=== PATIENT | female | born 1975 | race Caucasian/White ===

== ENCOUNTER 2018-05-30 06:00 | Inpatient (IN) | payer OTHER ==
[2018-05-30] VITALS (53 sets, daily range): BP systolic 96–181; BP diastolic 56–91
[~2018-05-30] VITALS: Ht 162.6 cm; Wt 71.0 kg
--- NOTE | 2018-05-30 06:30 | NUR ---
GENEVA KRISHNA presented to unit via from ED, accompanied by significant other, for INDUCTION. GENEVA KRISHNA weighed, gowned, voided, and to bed. EFHM and TOCO applied, VS taken. GENEVA KRISHNA oriented to bed controls, call light, TV, heat, and A/C controls.
[2018-05-30] MEDS ORDERED: MINERAL OIL CONCENTRATE 99.9% 15 ML UDC TOP PRN (06:45)
[2018-05-30 06:58] LABS: BILIRUBIN,URINE NEGATIVE (NEGATIVE); CLARITY,URINE CLEAR; COLOR,URINE YELLOW; GLUCOSE, URINE (UA) NEGATIVE (NEGATIVE); KETONES,URINE NEGATIVE (NEGATIVE); LEUKOCYTE ESTERASE ,URINE 3+ (NEGATIVE); NITRITE,URINE NEGATIVE (NEGATIVE); PH,URINE 7 (5-9); PROTEIN,URINE 2+ (NEGATIVE); UROBILINOGEN,URINE NORMAL (NORMAL)
[2018-05-30 07:13] LABS: BACTERIA,URINE FEW /HPF; RBC,URINE 0-2 /HPF
[2018-05-30] MEDS: D5 LR IV SOLUTION 1,000 ML IV SCH ×2 (07:35→15:17)
--- NOTE | 2018-05-30 08:01 | History & Physical-OB ---
OB - Chief Complaint & HPI Date/Time Date of Admission: Date of Admission: May 30, 2018 at 06:29 Date seen by a Provider: May 30, 2018 Time Seen by a Provider: 07:50 Chief Complaint/History OB-Reason for Admission/Chief: Induction of Labor Hx : 4 Hx Para: 3 Expected Date of Delivery: May 27, 2018 Gestational Age in Weeks: 40 Indication for induction: post dates Indication for : other () Other reason for admission: Pitocin Induction of Labor, Admission Nurse Assessment Rev: No Allergies and Home Medications Allergies Coded Allergies: Penicillins (Verified Allergy, Mild, 05/30/18) Patient Home Medication List Home Medication List Reviewed: Yes OB - History Hx of Present Ultrasounds: Normal mid trimester US Obstetrical Complications: Other (Advanced Maernal Age 2. Previous ) Medical Complications: None Obstetrical History Hx : 4 Hx Para: 3 Hx # Term Pregnancies: 3 Hx # Pregnancies: 0 Number of Living Children: 3 Hx Termination: No Hx Total # of Abortions (Spona: 0 Hx Multiple Gestation: No Hx Ectopic : No Hx Stillbirth: No Hx Complication: Yes (First was a , followed by two ) Hx Induced Hypertens: No Hx Maternal Gestational Diabet: No Hx Hemorrhage: No Delivery History Hx Dystocia: No Hx Forceps Assisted Delivery: No Hx Vacuum Extraction Assisted: No Hx Placenta Abnormality: No Hx Distress: No Hx Large For Gestational Age I: No Hx Small for Gestational Age I: No Hx Section: Yes Hx Vaginal Delivery Post C-Sec: Yes Hx Blood Disorders: No Adverse Rxn to Tranfusion: No Patient Past Medical History Healthy Healthy, advanced maternal age (43) Social History/Family History HIV/AIDS: No Recent Infectious Disease Expo: No Sexually Transmitted Disease: No Alcohol Use: Denies Use Recreational Drug Use: No Smoking Cessation: Current every day smoker 2nd Hand Smoke Exposure: Yes Immunizations Date of Influenza Vaccine: Dec 30, 2018 OB - Admission Exam Physical Exam HEENT: NCAT Heart: Rhythm Normal Lungs: Clear Abdomen: Gravid Extremities: Normal Cervical Dilatation: 1cm Effacement: Other (30%) Station: -3 Membranes: Intact Heart Rate: 130's Accelerations: Accelerations Present Decelerations: No Decelerations Short Term Variability: Present Mattress Renovator Variability: Average (6-25) Contractions on Admission: None [place] Scoring Tool (Modified) Dilation (cm): 1-2cm (1) Effacement (%): 0-30% (0) Descent/Station: -3 (0) Cervix Consistency: Medium(1) Cervix Position: Posterior (0) Add 1 point for: Each previous vaginal delivery (1) (2) Labs Laboratory Tests Test 05/30/18 06:50 Range/Units Urine Color YELLOW Urine Clarity CLEAR Urine pH 7 5-9 Urine Specific [place] 1.010 L 1.016-1.022 Urine Protein 2+ H NEGATIVE Urine Glucose (UA) NEGATIVE NEGATIVE Urine Ketones NEGATIVE NEGATIVE Urine Nitrite NEGATIVE NEGATIVE Urine Bilirubin NEGATIVE NEGATIVE Urine Urobilinogen NORMAL NORMAL MG/DL Urine Leukocyte Esterase 3+ H NEGATIVE Urine RBC (Auto) 1+ H NEGATIVE Urine RBC 0-2 /HPF Urine WBC 5-10 H /HPF Urine Squamous Epithelial Cells 10-25 H /HPF Urine Crystals NONE /LPF Urine Bacteria FEW H /HPF Urine Casts NONE /LPF Urine Mucus NEGATIVE /LPF Urine Culture Indicated YES OB - Assessment/Plan/Diagnosis Assessment Assessment: induction of labor, other (Advanced Maternal Age 2. Previous C- Section 3. 2 Previous ) Admission Dx IUP at 40 3/7 weeks Advanced Maternal Age Previous History of Two Admission Status: Inpatient Order (span 2 midnights) Reason for Inpatient Admission: Pitocin Induction of Labor TOLAC Advanced Maternal Age Plan Induction Method: per Pitocin Protocol AL FREIRE DO May 30, 2018 08:00
[2018-05-30 08:08] LABS: BASOPHILS % (AUTO) 0 % (0-10); EOSINOPHILS # (AUTO) 0.1 10^3/uL (0.0-0.3); EOSINOPHILS % (AUTO) 1 % (0-10); HEMATOCRIT 36 % (35-52); HEMOGLOBIN 12.1 G/DL (11.5-16.0); LYMPHOCYTES # (AUTO) 1.7 X 10^3 (1.0-4.0); LYMPHOCYTES % (AUTO) 15 % (12-44); MEAN CORPUSCULAR HEMOGLOBIN 30 PG (25-34); MEAN CORPUSCULAR HGB CONC 34 G/DL (32-36); MEAN CORPUSCULAR VOLUME 90 FL (80-99); MEAN PLATELET VOLUME 10.4 FL (7.4-10.4); MONOCYTES # (AUTO) 0.7 X 10^3 (0.0-1.0); MONOCYTES % (AUTO) 6 % (0-12); NEUTROPHILS # (AUTO) 8.7 X 10^3 (1.8-7.8); NEUTROPHILS % (AUTO) 78 % (42-75); PLATELET COUNT 334 10^3/uL (130-400); RED CELL DISTRIBUTION WIDTH 14.1 % (10.0-14.5); WHITE BLOOD COUNT 11.2 10^3/uL (4.3-11.0)
[2018-05-30] MEDS ORDERED: SUFENTA 0.6MCG/ML BUPIVA 0.125 100 ML ONE (08:45)
--- NOTE | 2018-05-30 09:34 | NUR ---
LOUIS CIAIO LUMITE INJECTOR here for epidural placement. Procedure explained, consent reviewed and signed by anesthesia. Questions answered to patient's satisfaction. Time out taken to verify correct patient/procedure. Patient up to side of bed, assisted into sitting position. Betadine prep done x3 and sterile drape applied. Local done, see anesthesia record. Test dose given, see anesthesia record for drug and dosage. Epidural catheter secured in place. Epidural placement complete. Assisted back into bed, monitors adjusted. Epidural dosed, see anesthesia record. Patient tolerated procedure well.
[2018-05-30] MEDS ORDERED: LIDOCAINE 1% INJ 20 ML 20 ML VIAL ONE (09:45)
[2018-05-30] MEDS ORDERED: LACTATED RINGERS 1,000 ML IV ONE (10:22)
[2018-05-30] MEDS ORDERED: CATHETER FLUSH 10 ML SYR IV PRN (10:30)
[2018-05-30] MEDS ORDERED: diphenhydrAMINE 50 MG/ML INJ (BENADRYL) IV PRN (10:30)
[2018-05-30] MEDS ORDERED: NALOXONE 0.4 MG/ML 1 ML (NARCAN) VIAL IV PRN (10:30)
[2018-05-30] MEDS ORDERED: LIDOCAINE 1% INJ 20 ML 20 ML VIAL INJ ONE (10:30)
[2018-05-30] MEDS ORDERED: EPIDURAL (SUFENTA 0.6MCG/ML BUPIVA 0.125%) 100 ML BAG EPI SCH (10:30)
[2018-05-30] MEDS ORDERED: ONDANSETRON 4 MG/2 ML (SDV) Z0FRAN IV PRN (10:30)
[2018-05-30] MEDS ORDERED: NALOXONE 0.4 MG/ML 1 ML (NARCAN) VIAL IM PRN (10:30)
[2018-05-30] MEDS ORDERED: PREN1TAB79 PO (10:37)
[2018-05-30] MEDS: OXYTOCIN/NORMAL SALINE 500 ML IV SCH ×2 (11:47→16:29)
[2018-05-30] MEDS ORDERED: CATHETER FLUSH 10 ML SYR IV SCH (14:00)
[2018-05-30] MEDS ORDERED: LIDOCAINE PF 2% 5 ML (XYLOCAINE) VIAL ONE (14:21)
[2018-05-30] MEDS ORDERED: fentaNYL INJECTION 100 MCG/2 ML AMP ONE (14:21)
--- NOTE | 2018-05-30 16:21 | OB Labor & Delivery Record ---
Vag Delivery Note Vag Delivery Note Date of Delivery: 05/30/18 Preoperative Diagnosis: Mireille Gomez is a (43 /Para 4 / 3, Gestational Age (wks)40with [] Postoperative Diagnosis: Same Surgeon: AL FREIRE Merchant Banker: [] Anesthesia: [Epidural and Local] Delivery Type: [Normal Spontaneous Vaginal Delivery with Third Degree Perineal Laceration and Standard Repair] Findings: [] Viable [Male] , apgars [8, 9], weight [7 lbs 15 oz] Lacerations:Third Degree Intact placenta with 3 vessel cord. No nuchal cord, body cord or shoulder dystocia Estimated Blood Loss: [300] ml Complications: None Condition: Stable Description of Procedure: The patient is a 43 year old female who presented [for Pitocin Induction for TOLAC]. She was admitted and informed consent was obtained. Her labor course was remarkable for [repetitive early decelerations with an occasional late component] She progressed to complete dilatation and began to push. She was then set up for delivery. The infant's head was delivered atraumatically in the [BRIA] position. The shoulders and remainder of the infant' s body were then delivered without difficulty. Upon delivery, the head was held below the level of the perineum and the mouth and nares were bulb suctioned. The cord was doubly clamped and cut and the was handed off to the pediatric staff after a short period on mom's chest. An intact placenta with 3- vessel cord delivered via Beth and there was found to be minimal bleeding.~ Vigorous fundal massage was performed and the fundus was found to be firm. IV oxytocin was given. Examination of the vagina and perineum revealed a [third degree perineal] laceration repaired in the usual fashion with 2-0 Vicryl and 3- 0 vicryl sutures. Following the repair, sponge, instrument and needle counts were correct. Mom and baby were both in stable condition in the labor suite. Vitals - Labs Vital Signs - I&O Vital Signs Date Time Temp Pulse Resp B/P (MAP) Pulse Ox O2 Delivery O2 Flow Rate FiO2 05/30/18 14:40 93 18 138/64 (88) 100 Room Air 05/30/18 14:33 91 18 181/67 (105) 100 Room Air 05/30/18 14:27 84 18 125/73 (90) 100 Room Air 05/30/18 14:25 85 18 140/73 (95) 100 Room Air 05/30/18 14:15 84 18 124/79 (94) 100 Room Air 05/30/18 14:10 90 18 131/84 (100) 99 Room Air 05/30/18 14:00 99 18 129/80 (96) 99 Room Air 05/30/18 13:50 87 18 116/65 (82) Room Air 05/30/18 13:30 71 18 121/70 (87) Room Air 05/30/18 13:15 78 18 117/65 (82) Room Air 05/30/18 13:00 77 18 112/64 (80) Room Air 05/30/18 12:45 81 18 115/64 (81) Room Air 05/30/18 12:30 82 18 121/66 (84) Room Air 05/30/18 12:15 77 18 108/62 (77) Room Air 05/30/18 12:00 84 18 112/65 (81) Room Air 05/30/18 11:45 98.1 78 20 117/67 (84) Room Air 05/30/18 11:20 90 20 120/69 (86) 98 Room Air 05/30/18 10:50 84 20 97/65 (76) 99 Room Air 05/30/18 10:20 84 20 106/65 (79) 99 Room Air 05/30/18 10:16 81 20 108/62 (77) 100 Room Air 05/30/18 10:13 86 20 104/63 (77) 98 Room Air 05/30/18 10:10 83 20 109/62 (78) 98 Room Air 05/30/18 10:07 81 20 110/61 (77) 98 Room Air 05/30/18 10:04 86 20 106/62 (77) 98 Room Air 05/30/18 10:01 86 20 105/62 (76) 99 Room Air 05/30/18 09:58 89 20 101/59 (73) 98 Room Air 05/30/18 09:55 93 20 106/62 (77) 98 Room Air 05/30/18 09:52 102 20 108/58 (75) 98 Room Air 05/30/18 09:49 93 20 113/64 (80) 98 Room Air 05/30/18 09:46 103 20 108/57 (74) 98 Room Air 05/30/18 09:43 80 20 123/56 (78) 98 Room Air 05/30/18 09:39 90 20 112/57 (75) 99 Room Air 05/30/18 09:36 92 20 117/59 (78) 99 Room Air 05/30/18 09:33 95 20 117/57 (77) 99 Room Air 05/30/18 09:30 97 20 142/79 (100) 99 Room Air 05/30/18 09:27 96 20 129/86 (100) 99 Room Air 05/30/18 09:05 88 20 108/63 (78) Room Air 05/30/18 08:35 90 20 110/58 (75) Room Air 05/30/18 08:05 90 20 110/64 (79) Room Air 05/30/18 07:35 98.8 05/30/18 06:50 99.0 104 20 119/79 (92) Room Air Labs Laboratory Tests 05/30/18 06:50: Urine Color YELLOW, Urine Clarity CLEAR, Urine pH 7, Urine Specific [place] 1.010L, Urine Protein 2+H, Urine Glucose (UA) NEGATIVE, Urine Ketones NEGATIVE, Urine Nitrite NEGATIVE, Urine Bilirubin NEGATIVE, Urine Urobilinogen NORMAL, Urine Leukocyte Esterase 3+H, Urine RBC (Auto) 1+H, Urine RBC 0-2, Urine WBC 5- 10H, Urine Squamous Epithelial Cells 10-25H, Urine Crystals NONE, Urine Bacteria FEWH, Urine Casts NONE, Urine Mucus NEGATIVE, Urine Culture Indicated YES 05/30/18 07:30: White Blood Count 11.2H, Red Blood Count 3.99L, Hemoglobin 12.1, Hematocrit 36, Mean Corpuscular Volume 90, Mean Corpuscular Hemoglobin 30, Mean Corpuscular Hemoglobin Concent 34, Red Cell Distribution Width 14.1, Platelet Count 334, Mean Platelet Volume 10.4, Neutrophils (%) (Auto) 78H, Lymphocytes (%) (Auto) 15 , Monocytes (%) (Auto) 6, Eosinophils (%) (Auto) 1, Basophils (%) (Auto) 0, Neutrophils # (Auto) 8.7H, Lymphocytes # (Auto) 1.7, Monocytes # (Auto) 0.7, Eosinophils # (Auto) 0.1, Basophils # (Auto) 0.0 AL FREIRE DO May 30, 2018 16:21
--- NOTE | 2018-05-30 16:25 | NUR ---
FFU/2 LT LOCHIA NOTED, VSS, SKIN TO SKIN, FAMILY AT BEDSIDE, FRESH ICE WATER TO PTS SIDE, EXPLAINED PLAN OF CARE, NO QUESTIONS NOTED, WILL MONITOR CLOSELY.
[2018-05-30] MEDS ORDERED: OXYTOCIN/NORMAL SALINE 500 ML IV SCH (16:54)
[2018-05-30] MEDS ORDERED: TETANUS,DIPTH,PERTUSS P/F (BOOSTRIX) 0.5 ML VIAL IM ONE (17:00)
[2018-05-30] MEDS ORDERED: BENZOCAINE/MENTHOL (DERMOPLAST) 56 ML CAN TP PRN (17:00)
[2018-05-30] MEDS ORDERED: WITCH HAZEL(TUCKS) 40 EA JAR TOP PRN (17:00)
[2018-05-30] MEDS ORDERED: IBUPROFEN 600 MG (MOTRIN) TAB PO SCH (17:00)
[2018-05-30] MEDS ORDERED: oxyCODONE/APAP 5/325MG (PERCOCET 5) TABLET PO PRN (17:00)
[2018-05-30] MEDS ORDERED: DIBUCAINE (NUPERCAINAL) 1% OINT 30 GM TOP PRN (17:00)
--- NOTE | 2018-05-30 17:30 | NUR ---
PT AMBULATED TO BR WITH RN AT SIDE, VOIDED WITHOUT DIFFICULTY, PERICARE COMPLETED, PAD AND PANTIES APPLIED, SCHEDULED MOTRIN GIVEN PO,
--- NOTE | 2018-05-30 17:47 | NUR ---
PT TRANSFERRED TO ROOM 3310 VIA WC WITH RN AT SIDE, TOLERATED WELL, FFU/2 LT LOCHIA NOTED, PTS FAMILY BEDSIDE, EXPLAINED PLAN OF CARE, NO QUESTIONS NOTED, WILL MONITOR CLOSELY.
--- NOTE | 2018-05-30 18:45 | NUR ---
FFU/2 LT LOCHIA NOTED, INFANT IN MOTHERS ARMS, NO DISTRESS NOTED, PTS FAMILY REMAINS AT BEDSIDE.
--- NOTE | 2018-05-30 20:22 | NUR ---
PT SITTING UP IN BED. ASSESSMENT COMPLETED. PT DENIES ANY NEEDS AT THIS TIME. WILL CONTINUE TO MONITOR.
[2018-05-30] MEDS: DOCUSATE SODIUM 100 MG (COLACE) CAP PO SCH (20:23)
--- NOTE | 2018-05-30 21:15 | NUR ---
PT REQUESTING TO LEAVE UNIT. IV DC'D
[2018-05-31] MEDS: IBUPROFEN 600 MG (MOTRIN) TAB PO SCH ×3 (00:13→12:29)
[2018-05-31 02:00] VITALS: BP 108/67
--- NOTE | 2018-05-31 03:51 | NUR ---
PT OFF UNIT
[2018-05-31 05:54] LABS: BASOPHILS % (AUTO) 0 % (0-10); EOSINOPHILS # (AUTO) 0.1 10^3/uL (0.0-0.3); EOSINOPHILS % (AUTO) 0 % (0-10); HEMATOCRIT 27 % (35-52); HEMOGLOBIN 8.9 G/DL (11.5-16.0); LYMPHOCYTES # (AUTO) 1.7 X 10^3 (1.0-4.0); LYMPHOCYTES % (AUTO) 14 % (12-44); MEAN CORPUSCULAR HEMOGLOBIN 30 PG (25-34); MEAN CORPUSCULAR HGB CONC 33 G/DL (32-36); MEAN CORPUSCULAR VOLUME 92 FL (80-99); MEAN PLATELET VOLUME 10.1 FL (7.4-10.4); MONOCYTES # (AUTO) 0.8 X 10^3 (0.0-1.0); MONOCYTES % (AUTO) 6 % (0-12); NEUTROPHILS # (AUTO) 9.5 X 10^3 (1.8-7.8); NEUTROPHILS % (AUTO) 79 % (42-75); PLATELET COUNT 283 10^3/uL (130-400); RED CELL DISTRIBUTION WIDTH 13.9 % (10.0-14.5)
[2018-05-31 06:16] VITALS: BP 101/66
[2018-05-31] MEDS ORDERED: PRENATAL VITAMIN 1 EA TAB PO SCH (07:00)
[2018-05-31 08:39] VITALS: BP 106/68
[2018-05-31] MEDS: DOCUSATE SODIUM 100 MG (COLACE) CAP PO SCH (08:40)
--- NOTE | 2018-05-31 08:50 | NUR ---
pt ambulates self off unit accompanied by s.o. to retrieve carseat. infant to nsy per parents request.
--- NOTE | 2018-05-31 09:05 | NUR ---
Pt returns to unit via ambulation accompanied by S.O.
--- NOTE | 2018-05-31 09:33 | Anesthesia-Regional Post-Op ---
Regional Patient Condition Mental Status: Alert, Oriented x3 Circulation: Same as Pre-Op Headache: Absent Sensation: Full Recovery Motor Block: Absent Post Op Complications Complications None Follow Up Care/Instructions Patient Instructions None needed. Anesthesia/Patient Condition Patient is doing well, no complaints, stable vital signs, no apparent adverse anesthesia problems. No complications reported per nursing. TANK GONZALEZ CRNA May 31, 2018 09:33
--- NOTE | 2018-05-31 10:00 | NUR ---
Dr. Quijano here to see pt. Order rec'd to D/C pt at 24hrs.
[2018-05-31] MEDS ORDERED: OXYC1TAB87 PO (10:11)
[2018-05-31] MEDS ORDERED: IBUP-844 PO (10:11)
[2018-05-31] MEDS ORDERED: DOCU100C37 PO (10:11)
--- NOTE | 2018-05-31 10:16 | Discharge Inst-Women's Service ---
Discharge Inst-Women's Serv Depart Medication/Instructions New, Converted or Re-Newed RX: RX Given to Pt/Family Instructions Pelvic rest for 6 weeks No heavy lifting, less than 20 lbs No strenuous activities Call with problems or questions Return to office in 6 weeks. Tub soaks 2-3 x daily Final Diagnosis IUP at 40 3/7 weeks Advance Maternal Age Previous x 2 Previous x 2 TOLAC Activity Activity: Activity as Tolerated Driving Instructions: You May Drive NO SMOKING: NO SMOKING Nothing Inside Vagina: No Douching, No [place], No Tampons Diet Discharge Diet: No Restrictions Return to The Hospital For: Return to hospital with heavy vaginal bleeding (greater than a pad/hour) Temperature greater than 100.4 Symptoms to Report to : Bleeding Excessive, Pain Increased, Fever Over 101 Degrees F, Vaginal Bleeding Increase, Vaginal Discharge Foul Skin/Wound Care Infection Signs and Symptoms: Increased Redness, Foul Odor of Wound, Increased Drainage, Temperature Above 101 F Bathing Instructions: Tub (2-3 times daily) AL FREIRE DO May 31, 2018 10:16
--- NOTE | 2018-05-31 10:23 | Discharge Summary ---
Diagnosis/Chief Complaint Date of Admission May 30, 2018 at 06:29 Date of Discharge 05/31/2018 Discharge Date: May 31, 2018 Discharge Time: 10:15 Admission Diagnosis Admission Diagnosis Intrauterine Pregnacy at 40 3/7 weeks Advanced Maternal Age Previous History of x 2 TOLAC Discharge Diagnosis Intrauterine at 40 3/7 weeks Advanced Maternal Age Previous x 2 History of x 2 TOLAC Reason Hospital Visit Pitocin Induction of Labor, Discharge Summary Hospital Course Was the Problem List Reviewed?: Yes Hospital Course Admitted for a Pitocin of Labor for TOLAC. Received an epidural for anesthesia. Progressed to complete, then delivered a healthy viable male infant. Sustained a third degree perineal laceration which was repaired in the normal sterile fashion. The remainder of her stay was unremarkable. Labs Laboratory Tests 05/30/18 06:50: Urine Specific [place] 1.010L, Urine Protein 2+H, Urine Leukocyte Esterase 3+H, Urine RBC (Auto) 1+H, Urine WBC 5-10H, Urine Squamous Epithelial Cells 10-25H, Urine Bacteria FEWH 05/30/18 07:30: White Blood Count 11.2H, Red Blood Count 3.99L, Neutrophils (%) (Auto) 78H, Neutrophils # (Auto) 8.7H 05/31/18 05:25: White Blood Count 12.0H, Red Blood Count 2.96L, Neutrophils (%) (Auto) 79H, Neutrophils # (Auto) 9.5H, Hemoglobin 8.9#L, Hematocrit 27L Procedures None. Discharge Physical Examination Allergies: Coded Allergies: Penicillins (Verified Allergy, Mild, 05/30/18) Vitals & I&Os Vital Signs Date Time Temp Pulse Resp B/P (MAP) Pulse Ox O2 Delivery O2 Flow Rate FiO2 05/31/18 08:39 98.4 88 18 106/68 (81) 98 Room Air 05/30/18 16:00 10.00 General Appearance: Alert, Oriented X3, Cooperative HEENT: Atraumatic, PERRLA, EOMI Respiratory: Clear to Auscultation, Normal Air Movement Cardiovascular: Regular Rate, No Murmurs Abdominal: Normal Bowel Sounds, Soft, No Tenderness Extremities: No Clubbing, No Cyanosis, No Edema Neuro: Normal Gait, Normal Speech Psych/Mental Status: Mental Status NL Discharge Home Medications Reviewed and agree with Discharge Medication list on patient's Discharge Instruction sheet Instructions to Patient/Family Please see electronic discharge instructions given to patient. Clinical Quality Measures DVT/VTE Risk/Contraindication: Risk Factor Score Per Nursin RFS Level Per Nursing on Admit: 2=Moderate AL FREIRE DO May 31, 2018 10:23
[2018-05-31 12:30] VITALS: BP 112/74
--- NOTE | 2018-05-31 15:50 | NUR ---
Pt ambulates self off unit accompanied by s.o. Infant to nsy.
--- NOTE | 2018-05-31 16:00 | NUR ---
Report to Evy Snyder RN. Unable to give Rhogam at this time D/T pt off unit, given to Evy Snyder RN for administration up pt return.
--- NOTE | 2018-05-31 16:25 | NUR ---
RHOGAM GIVEN PER ORDER.
--- NOTE | 2018-05-31 18:25 | NUR ---
DISCHARGE INSTRUCTIONS EXPLAINED TO PT, SIGNED, PT VERBALIZES UNDERSTANDING, NO QUESTIONS OR CONCERNS NOTED.
--- NOTE | 2018-05-31 18:30 | NUR ---
PT DISCHARGED TO HOME, AMBULATED TO PRIVATE CAR WITH SECURED IN REAR FACING CAR SEAT, SO AND RN AT SIDE, NO DISTRESS NOTED.
== END 2018-05-31 18:30 | disposition home or self-care (01) | DRG 768 ==
LOC: LDRP 06:29
PROVIDERS: ADMIT Obstetrics & Gynecology; ATTEND Obstetrics & Gynecology
PROC: 10E0XZZ Delivery of Products of Conception, External Approach (ICD-10-PCS; principal; 2018-05-30)
PROC: 0DQR0ZZ Repair Anal Sphincter, Open Approach (ICD-10-PCS; 2018-05-30)
PROC: 3E033VJ Introduction of Other Hormone into Peripheral Vein, Percutaneous Approach (ICD-10-PCS; 2018-05-30)
DX: O48.0 Post-term pregnancy (principal); O70.20 Third degree perineal laceration during delivery, unspecified; O76 Abnormality in fetal heart rate and rhythm complicating labor and delivery; O34.219 Maternal care for unspecified type scar from previous cesarean delivery; O99.333 Smoking (tobacco) complicating pregnancy, third trimester; F17.210 Nicotine dependence, cigarettes, uncomplicated; Z3A.40 40 weeks gestation of pregnancy; Z37.0 Single live birth
CPT/HCPCS: 36415; 81000; 83033; 85025; 86850; 86900; 86901; 87088

== ENCOUNTER 2019-09-19 16:34 | Emergency (ER) | payer SELFPAY ==
[~2019-09-19] VITALS: Ht 165 cm; Wt 54.1 kg
[~2019-09-19 16:34] MED LIST: DOCU100C37 PO; IBUP-844 PO; OXYC1TAB87 PO; PREN1TAB79 PO
--- OUTSIDE RECORDS SUMMARY | 2019-09-19 16:39 | XMS REPORT | Continuity of Care Document ---
Author Organization Unknown Address Unknown Phone Unavailable Allergies Active Description Code Type Severity Reaction Onset Reported/Identified Relationship to Patient Clinical Status Yes Penicillins [id number] Drug Aller gy Mild N/A 05/30/2018 Medications There is no data. 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, CIGARETTES, UNCOMPL 05/31/2018 SEALS DO AL E Ot O34.2 19 MATERNAL CARE FOR UNSP TYPE SCAR FROM LA 05/31/2018 SEALS DO AL E Ot O48.0 POST-TERM 05/31/2018 SEALS DO AL E Ot O70.2 0 THIRD DEGREE PERINEAL LACERATION DURING 05/31/2018 SEALS DO AL E Ot O76 ABNLT IN HEART RATE AND RHYTHM COM 05/31/2018 SEALS DO AL E Ot O99.3 33 SMOKING (TOBACCO) COMPLICATING 05/31/2018 SEALS DO AL E Ot Z37.0 SINGLE LIVE 05/31/2018 SEALS DO, AL E Ot Z3A.4 0 40 WEEKS GESTATION OF Procedures Code Description Performed By Per formed On [id number] RE PAIR ANAL SPHINCTER, OPEN APPROACH 05/30/2018 [id number] DE LIVERY OF PRODUCTS OF CONCEPTION, EXTE 05/30/2018 [id number] IN TRODUCTION OF OTH HORMONE INTO PERIPH 05/30/2018 Results Test Result Range Complete urinalysis with reflex to cultu re - 05/30/18 06:50 Urine color determination YELLOW NRG Urine clarity determination CLEAR NR G Urine pH measurement by test strip 7 5-9 Specific gravity of urine by test strip 1.010 1.016-1.022 Urine protein assay by test strip, semi-quantitative 2+ NEGATIVE Urine glucose detection by automated test strip NE GATIVE NEGATIVE Erythrocytes detection in urine sediment by light micr oscopy 1+ NEGATIVE Urine ketones detection by automated test strip NE GATIVE NEGATIVE Urine nitrite detection by test strip NEGATIVE NEGATIVE Urine total bilirubin detection by test strip NEGA TIVE NEGATIVE Urine urobilinogen measurement by automated test strip (mass/volume) NORMAL NORMAL Urine leukocyte esterase detection by dipstick 3+ NEGATIVE Automated urine sediment erythrocyte cou nt by microscopy (number/high power field) [HPF] NRG Automated urine sediment leukocyte count by microscopy (number/high power field) [HPF] NRG Bacteria detection in urine sediment by light microsco py FEW NRG Squamous epithelial cells detection in u rine sediment by light microscopy 10-25 NRG Crystals detection in urine sediment by light microsco py NONE NRG Casts detection in urine sediment by light microscopy NONE NRG Mucus detection in urine sediment by light microscopy NEGATIVE NRG Complete urinalysis with reflex to culture YES NRG Bacterial urine culture - 05/30/18 06:50 Bacterial urine culture SEE REPORT NRG COLONY COUNT . NRG Complete blood count (CBC) with automate d white blood cell (WBC) differential - 05/30/18 07:30 Blood leukocytes automated count (number/volume) 11.2 10*3/uL 4.3-11.0 Blood erythrocytes automated count (number/volume) 3.99 10*6/uL 4.35-5.85 Venous blood hemoglobin measurement (mass/volume) 12.1 g/dL 11.5-16.0 Blood hematocrit (volume fraction) 36 % 35-52 Automated erythrocyte mean corpuscular volume 90 [ foz_us] 80-99 Automated erythrocyte mean corpuscular h emoglobin (mass per erythrocyte) 30 pg 25-34 Automated erythrocyte mean corpuscular h emoglobin concentration measurement (mass/volume) 34 g/dL 32-36 Automated erythrocyte distribution width ratio 14. 1 % 10.0- 14.5 Automated blood platelet count (count/volume) 334 10*3/uL 130-400 Automated blood platelet mean volume measurement 10.4 [foz_us] 7.4-10.4 Automated blood neutrophils/100 leukocytes 78 % 42-75 Automated blood lymphocytes/100 leukocytes 15 % 12-44 Blood monocytes/100 leukocytes 6 % 0-12 Automated blood eosinophils/100 leukocytes 1 % 0-10 Automated blood basophils/100 leukocytes 0 % 0-10 Blood neutrophils automated count (number/volume) 8.7 10*3 1.8-7.8 Blood lymphocytes automated count (number/volume) 1.7 10*3 1.0-4.0 Blood monocytes automated count (number/volume) 0. 7 10*3 0.0-1.0 Automated eosinophil count 0.1 10*3/uL 0 .0-0.3 Automated blood basophil count (count/volume) 0.0 10*3/uL 0.0-0.1 Blood type T Indirect antibody screen pa nichole - 05/30/18 07:30 ABO+Rh group ON NRG Transfusion band number [id number] NRG Blood group antibody screen NEGATIVE NR G Complete blood count (CBC) with automate d white blood cell (WBC) differential - 05/31/18 05:25 Blood leukocytes automated count (number/volume) 12.0 10*3/uL 4.3-11.0 Blood erythrocytes automated count (number/volume) 2.96 10*6/uL 4.35-5.85 Venous blood hemoglobin measurement (mass/volume) 8.9 g/dL 11.5-16.0 Blood hematocrit (volume fraction) 27 % 35-52 Automated erythrocyte mean corpuscular volume 92 [ foz_us] 80-99 Automated erythrocyte mean corpuscular h emoglobin (mass per erythrocyte) 30 pg 25-34 Automated erythrocyte mean corpuscular h emoglobin concentration measurement (mass/volume) 33 g/dL 32-36 Automated erythrocyte distribution width ratio 13. 9 % 10.0- 14.5 Automated blood platelet count (count/volume) 283 10*3/uL 130-400 Automated blood platelet mean volume measurement 10.1 [foz_us] 7.4-10.4 Automated blood neutrophils/100 leukocytes 79 % 42-75 Automated blood lymphocytes/100 leukocytes 14 % 12-44 Blood monocytes/100 leukocytes 6 % 0-12 Automated blood eosinophils/100 leukocytes 0 % 0-10 Automated blood basophils/100 leukocytes 0 % 0-10 Blood neutrophils automated count (number/volume) 9.5 10*3 1.8-7.8 Blood lymphocytes automated count (number/volume) 1.7 10*3 1.0-4.0 Blood monocytes automated count (number/volume) 0. 8 10*3 0.0-1.0 Automated eosinophil count 0.1 10*3/uL 0 .0-0.3 Automated blood basophil count (count/volume) 0.0 10*3/uL 0.0-0.1 RH IMMUNE GLOBULIN RHOPHYLAC - 05/31/18 05:25 RH IMMUNE GLOBULIN RHOPHYLAC PRSMD TRFSD 05/31/18 1517 NRG cell screen - 05/31/18 05:25 SCREEN LOT NUMBER [id number] NRG Transfusion band number [id number] NR [id number] 1 300ug NRG Erythrocytes./1000 erythrocytes 06/20/18 NRG cell screen 10/02/20 NRG cell screen NEGATIVE NEGATIVE Lot number [id number] NRG Encounters ACCT No. Visit Date/Time Discharge Status Pt. Type Provider Facility Loc./Unit Complaint [id number] 08/05/2019 15:30:00 08/05/2019 23:59: 59 CLS Outpatient JOSHUA MARQUEZ [facility] [id number] 05/30/2018 06:29:00 019 18:30:00 DIS Inpatient AL FREIRE DO [facility] INDUCTION
[2019-09-19] MEDS ORDERED: NS IV 1000 ML 1,000 ML IV SCH (16:45)
[2019-09-19] MEDS ORDERED: ADENOSINE 6 MG/2 ML (ADENOCARD) VIAL IV ONE ×3 (16:46→17:00)
[2019-09-19 16:55] LABS: MEAN CORPUSCULAR HEMOGLOBIN 31 PG (25-34); WHITE BLOOD COUNT 10.5 10^3/uL (4.3-11.0)
--- NOTE | 2019-09-19 16:55 | ED Cardiac General ---
History of Present Illness General Chief Complaint: Cardiac/General Problems Stated Complaint: IRREGULAR HEARTBEAT Nursing Triage Note: Patient states she was resting when her heart began to beat rapidly, states she has had one previous episode of SVT that resolved with one dose of adenosine. Source: patient Exam Limitations: no limitations History of Present Illness Date Seen by Provider: Sep 19, 2019 Time Seen by Provider: 16:40 Initial Comments The patient is a pleasant 44-year-old female who presents for evaluation of a rapid heartbeat which started approximately 30 minutes prior to arrival. She states that she had a similar episode of tachycardia which was diagnosed as SVT and resolved after adenosine and this was while she was approximately 6 months . She denies any other episodes. She states that she feels completely fine except for the rapid heart rate which she can feel. She is alert and oriented 4, slightly anxious, but appears to be in no distress this time. She denies chest pain, fevers or chills, nausea or vomiting, diaphoresis, dizziness or syncope. Timing/Duration: 1/2 hour Severity: moderate Activities at Onset: none Allergies and Home Medications Allergies Coded Allergies: Penicillins (Verified Allergy, Mild, 05/30/18) Home Medications Docusate Sodium 100 Mg Capsule, 100 MG PO BID Prescribed by: AL FREIRE on 05/31/18 1011 Ibuprofen 600 Mg Tablet, 800 MG PO Q6HR PRN for PAIN-MILD Prescribed by: AL FREIRE on 05/31/18 1011 Oxycodone HCl/Acetaminophen 1 Each Tablet, 1-2 TAB PO Q6H PRN for PAIN-MODERATE Prescribed by: AL FREIRE on 05/31/18 1011 Vit W-Ca,Fe,FA(<1 mg) 1 Each Tablet, 1 TAB PO DAILY, (Reported) Patient Home Medication List Home Medication List Reviewed: Yes Review of Systems Review of Systems Constitutional: no symptoms reported EENTM: No Symptoms Reported Respiratory: No Symptoms Reported Cardiovascular: Irregular Heart Rate, Palpitations Gastrointestinal: No Symptoms Reported Genitourinary: No Symptoms Reported Musculoskeletal: no symptoms reported Skin: no symptoms reported Psychiatric/Neurological: No Symptoms Reported Endocrine: No Symptoms Reported Hematologic/Lymphatic: No Symptoms Reported All Other Systems Reviewed Negative Unless Noted: Yes Past Avxtqdd-Mioxol-Llozqb Hx Past Med/Social Hx: Reviewed Nursing Past Med/Soc Hx Patient Social History 2nd Hand Smoke Exposure: Yes Recent Foreign Travel: No Contact w/Someone Who Travel: No Recent Infectious Disease Expo: No Recent Hopitalizations: No Immunizations Up To Date PED Vaccines UTD: No Date of Influenza Vaccine: Dec 30, 2017 Seasonal Allergies Seasonal Allergies: Yes Past Medical History Surgeries: Yes (PREVIOUS CESEAREN SECTION X 1) Respiratory: No Cardiac: Yes (HX OF SVT, ABSOULTE ANEMIA) Neurological: No Sexually Transmitted Disease: No HIV/AIDS: No Genitourinary: No Gastrointestinal: No Musculoskeletal: No Endocrine: No HEENT: No Cancer: No Psychosocial: No Integumentary: No Blood Disorders: No Adverse Reaction/Blood Tranf: No Family Medical History FH: bladder cancer 19 MOTHER FH: multiple sclerosis 19 FATHER Patient's father is Patient's mother is Physical Exam Vital Signs Vital Signs - First Documented 09/19/19 16:41 Temp 37.0 Pulse 168 Resp 14 B/P (MAP) 138/74 (95) Pulse Ox 100 O2 Delivery Room Air Capillary Refill : Less Than 3 Seconds Height, Weight, BMI Height: 5'4.00" Weight: 156lbs. 8.0oz. [id number]; 19.00 BMI Method: General Appearance: No Apparent Distress, WD/WN HEENT: PERRL/EOMI, Pharynx Normal Neck: Full Range of Motion Respiratory: Lungs Clear, Normal Breath Sounds, No Accessory Muscle Use, No Respiratory Distress Cardiovascular: No JVD, No Murmur, Normal Peripheral Pulses, Tachycardia Gastrointestinal: No Organomegaly, Non Tender, Soft Extremity: Normal Capillary Refill, Non Tender Neurologic/Psychiatric: Alert, Oriented x3, No Motor/Sensory Deficits, Normal Mood/Affect Skin: Normal Color, Warm/Dry Progress/Results/Core Measures Results/Orders Lab Results Laboratory Tests Test 09/19/19 16:44 Range/Units White Blood Count 10.5 4.3-11.0 10^3/uL Red Blood Count 4.88 4.35-5.85 10^6/uL Hemoglobin 15.0 11.5-16.0 G/DL Hematocrit 44 35-52 % Mean Corpuscular Volume 90 80-99 FL Mean Corpuscular Hemoglobin 31 25-34 PG Mean Corpuscular Hemoglobin Concent 34 32-36 G/DL Red Cell Distribution Width 13.1 10.0-14.5 % Platelet Count 337 130-400 10^3/uL Mean Platelet Volume 9.8 7.4-10.4 FL Neutrophils (%) (Auto) 51 42-75 % Lymphocytes (%) (Auto) 37 12-44 % Monocytes (%) (Auto) 9 0-12 % Eosinophils (%) (Auto) 2 0-10 % Basophils (%) (Auto) 1 0-10 % Neutrophils # (Auto) 5.4 1.8-7.8 X 10^3 Lymphocytes # (Auto) 3.9 1.0-4.0 X 10^3 Monocytes # (Auto) 0.9 0.0-1.0 X 10^3 Eosinophils # (Auto) 0.3 0.0-0.3 10^3/uL Basophils # (Auto) 0.1 0.0-0.1 10^3/uL Neutrophils % (Manual) 50 % Lymphocytes % (Manual) 37 % Monocytes % (Manual) 12 % Eosinophils % (Manual) 1 % Basophils % (Manual) 0 % Band Neutrophils 0 % Sodium Level 139 135-145 MMOL/L Potassium Level 3.4 L 3.6-5.0 MMOL/L Chloride Level 100 98-107 MMOL/L Carbon Dioxide Level 20 L 21-32 MMOL/L Anion Gap 19 H 5-14 MMOL/L Blood Urea Nitrogen 9 7-18 MG/DL Creatinine 0.77 0.60-1.30 MG/DL Estimat Glomerular Filtration Rate > 60 BUN/Creatinine Ratio 12 Glucose Level 109 H 70-105 MG/DL Calcium Level 10.1 8.5-10.1 MG/DL Corrected Calcium 8.5-10.1 MG/DL Total Bilirubin 0.4 0.1-1.0 MG/DL Aspartate Amino Transf (AST/SGOT) 16 5-34 U/L Alanine Aminotransferase (ALT/SGPT) 18 0-55 U/L Alkaline Phosphatase 89 40-136 U/L Troponin I < 0.30 <0.30 NG/ML Pro-B-Type Natriuretic Peptide 40.2 <75.0 PG/ML Total Protein 7.6 6.4-8.2 GM/DL Albumin 4.8 H 3.2-4.5 GM/DL My Orders Orders - NIKA CACERES DO Continuous Ekg Monitoring (09/19/19 16:42) Ekg Tracing (09/19/19 16:42) Cbc With Automated Diff (09/19/19 16:42) Comprehensive Metabolic Panel (09/19/19 16:42) Troponin I Fs (09/19/19 16:42) Probnp Fs (09/19/19 16:42) Ed Iv/Invasive Line Start (09/19/19 16:42) Ns Iv 1000 Ml (Sodium Chloride 0.9%) (09/19/19 16:45) Adenosine Injection (Adenocard Injection (09/19/19 17:00) Adenosine Injection (Adenocard Injection (09/19/19 16:46) Adenosine Injection (Adenocard Injection (09/19/19 17:00) Manual Differential (09/19/19 16:44) Ekg Tracing (09/19/19 17:19) Potassium Chloride (Tablet) (K Dur Table (09/19/19 17:45) Medications Given in ED Current Medications Medications Dose Ordered Sig/Mariama Route Start Time Stop Time Status Last Admin Dose Admin Adenosine 6 mg ONCE ONCE IV 09/19/19 17:00 09/19/19 17:01 DC 09/19/19 16:52 6 MG Adenosine 12 mg ONCE ONCE IV 09/19/19 17:00 09/19/19 17:01 DC 09/19/19 16:56 12 MG Vital Signs/I&O 09/19/19 16:41 Temp 37.0 Pulse 168 Resp 14 B/P (MAP) 138/74 (95) Pulse Ox 100 O2 Delivery Room Air Blood Pressure Mean: 95 Progress Progress Note : Progress Note @1657 - After receiving adenosine 6 mg followed by adenosine 12 mg the patient reports immediate complete resolution of her symptoms. She has no complaints at this time. @1745 - patient's lab work shows some mild hypokalemia which has been replaced orally. Advised the patient to follow up with her PCP in the next 1-2 days and to return to the emergency Department immediately for new or worsening symptoms. She expresses verbal understanding and agreement with the plan and is stable for discharge. Comment 1st EKG @1647 - SVT with a rate of 169, normal axis, no acute ischemic findings noted, no STEMI, reviewed and interpreted by myself 2nd EKG after adenosine 6mg and then 12mg @1657 - sinus tachycardia, rate of 106, normal axis, no acute ischemic findings noted, no STEMI, reviewed and interpreted by myself Departure Impression Primary Impression: SVT (supraventricular tachycardia) Disposition: 01 HOME, SELF-CARE Condition: Stable Departure-Patient Inst. Decision time for Depature: 17:45 Referrals: WEI SPEAR MD (PCP/Family) Primary Care Physician Patient Instructions: SMOKING CESSATION, Supraventricular Tachycardia (SVT) Add. Discharge Instructions: Follow-up with your doctor in the next 2-3 days. Return to the emergency Department immediately for new or worsening symptoms. Avoid alcohol as this can contribute to SVT and also stop smoking cigarettes for your general well-being. NIKA CACERES DO Sep 19, 2019 16:55
[2019-09-19 16:56] LABS: BASOPHILS % (AUTO) 1 % (0-10); EOSINOPHILS % (AUTO) 2 % (0-10); HEMATOCRIT 44 % (35-52); LYMPHOCYTES # (AUTO) 3.9 X 10^3 (1.0-4.0); LYMPHOCYTES % (AUTO) 37 % (12-44); MEAN CORPUSCULAR HGB CONC 34 G/DL (32-36); MEAN CORPUSCULAR VOLUME 90 FL (80-99); MEAN PLATELET VOLUME 9.8 FL (7.4-10.4); MONOCYTES # (AUTO) 0.9 X 10^3 (0.0-1.0); MONOCYTES % (AUTO) 9 % (0-12); NEUTROPHILS # (AUTO) 5.4 X 10^3 (1.8-7.8); NEUTROPHILS % (AUTO) 51 % (42-75); PLATELET COUNT 337 10^3/uL (130-400); RED CELL DISTRIBUTION WIDTH 13.1 % (10.0-14.5)
[2019-09-19 16:57] LABS: BASOPHILS # (AUTO) 0.1 10^3/uL (0.0-0.1); EOSINOPHILS # (AUTO) 0.3 10^3/uL (0.0-0.3)
[2019-09-19 17:13] LABS: BAND NEUTROPHILS 0 %; BASOPHILS % (MANUAL) 0 %; EOSINOPHILS % (MANUAL) 1 %; LYMPHOCYTES % (MANUAL) 37 %; MONOCYTES % (MANUAL) 12 %; NEUTROPHILS % (MANUAL) 50 %
[2019-09-19 17:21] LABS: BUN/CREATININE RATIO 12; CARBON DIOXIDE 20 MMOL/L (21-32); CHLORIDE 100 MMOL/L (98-107); CREATININE SERUM 0.77 MG/DL (0.60-1.30); GFR ESTIMATED > 60; GLUCOSE 109 MG/DL (70-105); POTASSIUM 3.4 MMOL/L (3.6-5.0); SODIUM 139 MMOL/L (135-145)
[2019-09-19 17:22] LABS: ALANINE AMINOTRANSFERASE 18 U/L (0-55); ALBUMIN 4.8 GM/DL (3.2-4.5); ALKALINE PHOSPHATASE 89 U/L (40-136); BILIRUBIN,TOTAL 0.4 MG/DL (0.1-1.0); CALCIUM 10.1 MG/DL (8.5-10.1); TOTAL PROTEIN 7.6 GM/DL (6.4-8.2)
[2019-09-19] MEDS ORDERED: KCL 20 MEQ TAB (K-DUR) PO ONE (17:45)
[2019-09-19 18:02] VITALS: BP 127/82
== END 2019-09-19 18:00 | disposition home or self-care (01) ==
LOC: EDUNIT# 16:34 → ER FS 16:35
DX: I47.1 Supraventricular tachycardia (principal); Z88.0 Allergy status to penicillin; Z77.22 Contact with and (suspected) exposure to environmental tobacco smoke (acute) (chronic); Z80.52 Family history of malignant neoplasm of bladder
CPT/HCPCS: 36415; 80053; 83880; 84484; 85007; 85025; 85027; 93005

== ENCOUNTER 2022-02-24 09:10 | Emergency (ER) | payer SELFPAY ==
[~2022-02-24] VITALS: Ht 162.6 cm; Wt 62.2 kg
[2022-02-24 09:17] VITALS: BP 140/72
[2022-02-24] MEDS ORDERED: predniSONE 20 MG TAB PO ONE (09:45)
--- NOTE | 2022-02-24 09:54 | ED Cough/URI ---
General Chief Complaint: Cough/Cold/Flu Symptoms Stated Complaint: SOB; FLU+ Source: patient Exam Limitations: no limitations History of Present Illness Date Seen by Provider: Feb 24, 2022 Time Seen by Provider: 09:30 Initial Comments Patient is a 46-year-old female with history of tobaccoism who presents with flulike symptoms for the past several days. Patient reports increasing shortness of breath over the past 2 days. She was evaluated at urgent care this morning and was told that she had her oxygen saturation was 88% prompting referral to the emergency department. Patient denies fever chills, cough sore throat, chest pain palpitations, leg pains and swelling. She currently denies fever sweats but does report exertional dyspnea. Previous inhaler use but does denies history of chronic bronchitis or asthma. No other acute symptoms or complaints. Timing/Duration: week, getting worse Severity/Quality: other Prior Episodes/Possible Cause: other Modifying Factors: Improves With Other Associated Symptoms: other Allergies and Home Medications Allergies Coded Allergies: Penicillins (Verified Allergy, Mild, 05/30/18) Patient Home Medication List Home Medication List Reviewed: Yes Docusate Sodium (Docusate Sodium) 100 Mg Capsule, 100 MG PO BID Prescribed by: AL FREIRE on 05/31/18 1011 Ibuprofen (Ibu) 600 Mg Tablet, 800 MG PO Q6HR PRN for PAIN-MILD Prescribed by: AL FREIRE on 05/31/18 1011 Oxycodone HCl/Acetaminophen (Percocet 5-325 mg Tablet) 1 Each Tablet, 1-2 TAB PO Q6H PRN for PAIN-MODERATE Prescribed by: AL FREIRE on 05/31/18 1011 Vit W-Ca,Fe,FA(<1 mg) ( Vitamins) 1 Each Tablet, 1 TAB PO DAILY, (Reported) Entered as Reported by: JACQUELYN MATOS on 05/30/18 1037 Review of Systems Review of Systems Constitutional: see HPI EENTM: see HPI Respiratory: see HPI Cardiovascular: see HPI Gastrointestinal: see HPI Genitourinary: see HPI Musculoskeletal: see HPI Skin: see HPI Psychiatric/Neurological: See HPI Hematologic/Lymphatic: See HPI Immunological/Allergic: see HPI All Other Systems Reviewed Negative Unless Noted: No Past Iqebhol-Xnjjrf-Uvpnag Hx Patient Social History Tobacco Use?: No Immunizations Up To Date PED Vaccines UTD: No Seasonal Allergies Seasonal Allergies: Yes Past Medical History Surgeries: Yes (PREVIOUS CESEAREN SECTION X 1) Respiratory: No Cardiac: Yes (HX OF SVT) Neurological: No Sexually Transmitted Disease: No HIV/AIDS: No Genitourinary: No Gastrointestinal: No Musculoskeletal: No Endocrine: No HEENT: No Cancer: No Psychosocial: No Integumentary: No Blood Disorders: No Adverse Reaction/Blood Tranf: No Family Medical History FH: bladder cancer 19 MOTHER FH: multiple sclerosis 19 FATHER Patient's father is Patient's mother is Physical Exam Capillary Refill : Height: 5'4.00" Weight: 156lbs. 8.0oz. 70.229910uk; 19.00 BMI Method: General Appearance: WD/WN, no apparent distress Eyes: Bilateral Eye Normal Inspection, Bilateral Eye PERRL, Bilateral Eye EOMI HEENT: PERRL/EOMI, normal ENT inspection Neck: non-tender, full range of motion, supple Respiratory: decreased breath sounds, rhonchi, wheezing Cardiovascular: regular rate, rhythm, no edema Gastrointestinal: non tender, soft Neurologic/Psychiatric: alert, oriented x 3 Skin: warm/dry Lymphatic: no adenopathy Focused Exam Sepsis Stage: Ruled Out Progress/Results/Core Measures Suspected Sepsis SIRS Temperature: Pulse: Respiratory Rate: Blood Pressure / Mean: Results/Orders My Orders Orders - LEONARD SAUNDERS DO Chest 1 View Ap/Pa Only (02/24/22 09:37) Prednisone Tablet (Deltasone Tablet) (02/24/22 09:45) Vital Signs/I&O Capillary Refill : Departure Communication (Admissions) Chest x-ray: No acute cardiopulmonary disease per radiology report Patient symptoms are consistent with post viral bronchopneumonia bronchospasm. Patient's O2 saturation is 100% on room air while in the ED. steroids given. Will prescribe antibiotics and inhaler use upon departure from the emergency department. Recommendations are continued supportive therapeutic care with PCP follow-up. Return precautions reviewed. Patient verbalizes Impression Primary Impression: Viral syndrome Additional Impression: Bronchopneumonia Disposition: 01 HOME, SELF-CARE Condition: Stable Departure-Patient Inst. Decision time for Depature: 09:51 Referrals: BERKLEY RIVAS APRN (PCP) Primary Care Physician [facility] (Family) Primary Care Physician Patient Instructions: BRONCHOSPASM-ADULT, Pneumonia, Adult ED Add. Discharge Instructions: You were evaluated in the emergency department for cough and shortness of breath. Your symptoms are consistent with post viral pneumonia with bronchospasm. Please take newly prescribed medications as directed and follow- up with your PCP in 3 to 5 days for reevaluation. In the meantime if you develop new or worsening symptoms, return to the emergency department. All discharge instructions reviewed with patient and/or family. Voiced understanding. Scripts Doxycycline Hyclate (Doxycycline Hyclate) 100 Mg Tablet 100 MG PO BID, #14 TAB 0 Refills Prov: LEONARD SAUNDERS DO 02/24/22 Albuterol Sulfate (Proventil Hfa) 6.7 Gm Hfa.aer.ad 2 PUFF INH Q6H for SHORTNESS OF BREATH, #1 EACH Prov: LEONARD SAUNDERS DO 02/24/22 Prednisone (Prednisone) 20 Mg Tab 40 MG PO DAILY, #6 TAB 0 Refills Prov: LEONARD SAUNDERS DO 02/24/22 LEONARD SAUNDERS DO Feb 24, 2022 09:54
[2022-02-24] MEDS ORDERED: PRD20T PO (09:55)
[2022-02-24] MEDS ORDERED: DOXY100T2 PO (09:55)
[2022-02-24] MEDS ORDERED: RT-ALBUINH INH (09:55)
--- NOTE | 2022-02-24 10:03 | Diagnostic Imaging Report ---
INDICATION: Short of air EXAMINATION: Chest 02/24/2022 FINDINGS: Patchy airspace opacities noted in the lower lobe suspicious for developing infiltrates. There are no effusions. There is no pneumothorax. Heart normal. Pulmonary vasculature congested. IMPRESSION: 1. Pulmonary vascular congestion. 2. Patchy infiltrates in the lower lobes. Dictated by: Dictated on workstation # [id number]
== END 2022-02-24 10:06 | disposition home or self-care (01) ==
LOC: EDUNIT# 09:10 → ER FS 09:11
DX: J12.9 Viral pneumonia, unspecified (principal); Z88.0 Allergy status to penicillin; Z28.310 Unvaccinated for COVID-19
CPT/HCPCS: 71045